=== PATIENT | male | born 2000 | race Caucasian/White ===

== ENCOUNTER 2023-11-02 18:29 | Emergency (ER) | payer SELFPAY ==
[~2023-11-02] VITALS: Ht 180.3 cm; Wt 106.8 kg
[2023-11-02] MEDS ORDERED: NS 1,000 ML IV ONE (19:00)
[2023-11-02] MEDS ORDERED: Ketorolac 30 MG/ML VIAL IV ONE (19:00)
[2023-11-02 20:05] VITALS: TEMP 100.8
[2023-11-02] MEDS ORDERED: PREDNISONE20 MG PO (20:30)
[2023-11-02] MEDS ORDERED: CLEOCIN HCL300 MG PO (20:30)
[2023-11-02 20:55] VITALS: BP 132/68; PULSE 105
== END 2023-11-02 20:55 | disposition home or self-care (01) ==
LOC: COL.ER 18:29
DX: J03.90 Acute tonsillitis, unspecified (principal)
CPT/HCPCS: J1885; J7030